=== PATIENT | male | born 1995 | race Caucasian/White ===

== ENCOUNTER 2024-12-16 08:29 | Day surgery (SDC) | payer BC ==
[2024-12-15 10:38] VITALS: BMI 30.8
[2024-12-16 09:21] LABS: #Basophils 0.05 10x3/uL (0.0-0.2); #Eosinophils 0.06 10x3/uL (0.0-0.7); #Monocytes 0.65 10x3/uL (0.11-0.59); #Neutrophils 5.24 10x3/uL (1.40-6.50); %Basophils 0.6 % (0.0-1.0); %Eosinophils 0.7 % (0.0-10.0); %Lymphocytes 26.5 % (21.0-51.0); %Monocytes 7.9 % (0.0-10.0); %Neutrophils 63.7 % (42.0-75.0); Hematocrit 43.4 % (42.0-52.0); Hemoglobin 15.0 g/dL (14.0-18.0); Mean Corpuscular Hemoglobin 28.9 pg (27.0-31.0); Mean Corpuscular Volume 83.6 fL (78.0-98.0); Platelet Count 204 10x3/uL (130-400); Red Blood Cell (RBC) Count 5.19 mill/uL (4.70-6.10); White Blood Cell (WBC) Count 8.23 10x3/uL (4.8-10.8)
[2024-12-16] MEDS ORDERED: CEFAZOLIN 2 GM VIAL ONE (09:47)
[2024-12-16] MEDS ORDERED: PROPOFOL 20 ML ONE (09:56)
[2024-12-16] MEDS ORDERED: Ondansetron PF 4 MG/2 ML Vial ONE (10:04)
[2024-12-16] MEDS ORDERED: Lidocaine 1% PF 5 ML VIAL ONE (10:04)
[2024-12-16] MEDS ORDERED: HYDROmorphone 0.5 MG/0.5 ML SYRINGE ONE (11:47)
[2024-12-16] MEDS ORDERED: Ketorolac Tromethamine 30 MG (1 mL) VIAL ONE (12:00)
[2024-12-16] MEDS ORDERED: HYDROcodone/Acetaminophen 5/325 mg Tablet ONE (12:33)
== END 2024-12-16 13:15 | disposition home or self-care (01) ==
LOC: SDC 08:29
PROVIDERS: ATTEND Orthopaedic Surgery Hand Surgery
PROC: 0H8 Skin and Breast, Division (ICD-10-PCS; principal; 2024-12-16)
DX: S65 Injury of blood vessels at wrist and hand level (principal); X58.XXXA Exposure to other specified factors, initial encounter; Z87.891 Personal history of nicotine dependence
CPT/HCPCS: 85025; J1171; J1885; J2250; J2405; J2704; J3010